=== PATIENT | female | born 1985 ===

== ENCOUNTER 2023-02-24 05:31 | Inpatient (IN) ==
--- NOTE | 2023-02-18 13:42 | Anesthesiology Consultation ---
Date of Service February 18, 2023 Assessment & Plan (1) Encounter for pre-operative examination: Infectious disease screening: Per assessment on 02/18/23: Patient tested positive for RSV approximately 02/06/23. Symptoms at time of cough and congestion/runny nose. Patient was given abx (ceftin) for sinus infection. Symptoms are resolving. She indicates Covid testing done 02/17 ([facility]) was negative per patient. date 2+ weeks after symptom onset and symptoms resolving. Ob aware/recommend keeping as scheduled at this time. Chart Review Chart Review: data entry initiated History Surgery Operation Date: 02/24/23 09:00 Proposed Procedures p Section (Delivery of Baby Through Abdominal Incision) - Jonelle Madsen MD, FACOG Height/Weight Height: 5 ft 7 in Weight: 89.358 kg Allergies Allergy/AdvReac Type Severity Reaction Status Date / Time Penicillins Allergy Unknown Verified 02/18/23 13:12 Medications Home Medications Medication Instructions Recorded Confirmed Last Taken prenat.vits,tejinder,[id number] 1 tab PO DAILY 07/15/22 02/18/23 Unknown Past Medical History Medical History Elderly multigravida, currently Past Family History Family History Aunt Breast cancer Family/Other Heart disease Denies family history of Ovarian cancer Colorectal cancer Past Surgical History Surgical History Nausea after anesthesia with in 2021 Hx of breast augmentation H/O LEEP S/P wisdom tooth extraction S/P Social History Smoking Status: Former smoker Do You Dip or Chew Tobacco: No Smoking End Date: 10 years ago Hx Alcohol Use: Yes alcohol intake frequency: other Alcohol Intake Frequency Comment: not for a few years Hx Substance Use: No substance use type: does not use Lab Results Anesthesia Preop Results Results Anesthesia Widget: Hgb 11.5 g/dl (12.0-16.0) L 12/30/22 Hct 34.5 % (37.0-47.0) L 12/30/22
--- NOTE | 2023-02-22 20:53 | History & Physical Report ---
Date of Service February 22, 2023 Assessment & Plan (1) Elderly multigravida, currently : Plan: IUP at 39 weeks for repeat LTCS AMA status keloid scar formation (2) Previous delivery affecting : Plan: proceed with repeat LTCS because of short interval will revise prior scar at time of repeat C/S but she is aware that she may need additional revisions in the future. thr procedure and it's risks were reviewed with the patient and her and all questions answered to their satisfaction. History of Present Illness Primary Care Provider: NO PCP Patient is a 37 yo female EDC 03/01/23 who presents at 39 weeks for repeat C/S. complicated by AMA status. testing has been reassuring. GBS-negative. Allergies Allergy/AdvReac Type Severity Reaction Status Date / Time Penicillins Allergy Unknown Verified 02/21/23 13:10 Home Medications Medication Instructions Recorded Confirmed Type prenat.vits,tejinder,[id number] 1 tab PO DAILY 07/15/22 02/21/23 History Patient History Medical History (Updated 02/22/23 @ 20:57 by Jonelle Madsen MD, FACOG) Elderly multigravida, currently Surgical History (Updated 02/22/23 @ 20:57 by Jonelle Madsen MD, FACOG) Nausea after anesthesia with in 2021 Hx of breast augmentation H/O LEEP S/P wisdom tooth extraction S/P Family History Aunt Breast cancer Family/Other Heart disease Denies family history of Ovarian cancer Colorectal cancer Social History (Updated 07/15/22 @ 09:56 by Steffi Mcfadden, JANET) Smoking Status: Former smoker Second Hand Exposure: No; Do You Dip or Chew Tobacco: No; Hx Alcohol Use: Yes Hx Substance Use: No Preferred Language: Citizen Of [place] Communication Ability: Effective Manager Product Support Required: No Beliefs That Will Affect Care: None marital status: marital status details: [place] [phone] Current Living Situation: Spouse and Family Current Living Situation Comment: , son, dog current occupational status: employed current occupation: [place] 1 week/ month Feels Safe at Home: Yes OB History Prior C/S done for LGA that weighed 10 lbs 6 ozs. that delivery was 17 months ago. 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 Review of Systems All systems reviewed & are unremarkable except as noted in HPI & below Physical Exam Constitutional: WD/WN, vitals as above Respiratory: normal respiratory effort, lungs clear to auscultation Cardiovascular: RRR, no murmur, no edema Gastrointestinal (Abdomen): Inspection/Auscultation: + abdominal surgical scar (keloid formation of low transverse incision) Psychiatric: A+Ox3, euthymic affect Genitourinary: OB Exam Abdomen: + fundal height (term), + vertex and + estimated weight (9 pounds) OB Exam Monitor Tracing: + external FHT monitor used, + external uterine monitor used, + category I and + normal FHT variability Coding Level of Care Code None Diagnoses Elderly multigravida, currently O09.529 Previous delivery affecting O34.219
[2023-02-24] MEDS ORDERED: SODIUM CHLORIDE 0.9% 250 ML IV PRN (05:38)
[2023-02-24] MEDS ORDERED: LACTATED RINGER'S 1,000 ML IV SCH ×2 (06:00→09:10)
[2023-02-24] MEDS ORDERED: CITRIC ACID/SODIUM CITRATE 15 ML UDC PO SCH (06:00)
[2023-02-24] MEDS ORDERED: ceFAZolin 2000MG 2,000 MG/15 ML SYR IV ONE (06:30)
[2023-02-24 06:34] LABS: Basophils # (auto) 0.01 K/uL (0.00-0.20); Basophils % (auto) 0.1 %; Eosinophils % (auto) 1.5 %; Hematocrit (blood only) 35.3 % (37.0-47.0); Hemoglobin 11.2 g/dl (12.0-16.0); Immature Granulocytes # (auto) 0.03 K/uL (0.01-0.20); Immature Granulocytes % (auto) 0.4 %; Lymphocytes # (auto) 2.37 K/uL (1.20-3.40); Lymphocytes % (auto) 34.6 %; Mean Corpuscular Hgb Conc 31.7 g/dL (32.0-36.0); Mean Corpuscular Volume 82.1 fL (80.0-100.0); Mean Platelet Volume 10.9 fL (9.4-12.4); Monocytes # (auto) 0.66 K/uL (0.11-0.59); Monocytes % (auto) 9.6 %; Neutrophils # (auto) 3.68 K/uL (1.40-6.50); Neutrophils % (auto) 53.8 %; Platelet Count 282 K/uL (130-400); RDW Standard Deviation 43.8 fL (36.4-46.3); White Blood Count 6.85 K/ul (4.8-10.8)
[2023-02-24] MEDS ORDERED: fentaNYL citrate PF 100 MCG/2 ML VIAL ONE (06:50)
[2023-02-24] MEDS ORDERED: MoRPHine SULFATE PF 1 MG/ML 10 ML AMP/VIAL ONE (06:51)
[2023-02-24] MEDS ORDERED: OXYTOCIN 10 UNITS/ML VIAL ONE (06:58)
[2023-02-24] MEDS ORDERED: LIDOCAINE 1%/EPINEPHRINE 1:100,000 50 ML VIAL INFIL ONE (07:15)
[2023-02-24] MEDS ORDERED: TRIAMCINOLONE ACET 40 MG/ML VIAL IM ONE (07:15)
--- NOTE | 2023-02-24 07:23 | History & Physical Bridge Note ---
Date of Service February 24, 2023 History & Physical Bridge Note I have examined the patient, reviewed the History & Physical and in the interval since the performance of the History & Physical I have noted the following changes of clinical significance: no changes noted
[2023-02-24] MEDS ORDERED: LIDOCAINE 1%/EPINEPHRINE 1:100,000 20 ML VIAL ONE (07:51)
[2023-02-24] MEDS ORDERED: ONDANSETRON INJ 2 MG/ML 2 ML VIAL ONE (07:57)
[2023-02-24] MEDS ORDERED: MoRPHine SULFATE PF 1 MG/ML 10 ML AMP/VIAL INT SPINAL ONE (07:58)
[2023-02-24] MEDS ORDERED: NALBUPHINE HCL 5 MG in SYRINGE 0 ML IV PRN (07:58)
[2023-02-24] MEDS ORDERED: ONDANSETRON INJ 2 MG/ML 2 ML VIAL IV PRN (07:58)
[2023-02-24] MEDS ORDERED: LACTATED RINGER'S 500 ML IV PRN (07:58)
[2023-02-24] MEDS ORDERED: NALOXONE HCL 0.08 MG in SYRINGE 1.8 ML IV PRN (07:58)
[2023-02-24] MEDS ORDERED: NALOXONE HCL 0.4 MG/1 ML VIAL/CARP IV PRN (07:58)
[2023-02-24] MEDS ORDERED: MEPERIDINE HCL 25 MG/ML CARP/VIAL IV PRN (07:58)
[2023-02-24] MEDS ORDERED: diphenhydrAMINE 50 MG/ML VIAL IV PRN (07:58)
[2023-02-24] MEDS ORDERED: ePHEDrine sulfate 50 MG/ML AMP IV PRN (07:58)
[2023-02-24] MEDS ORDERED: NALOXONE HCL 1 MG in SODIUM CHLORIDE 0.9% 1,000 ML IV PRN (07:58)
[2023-02-24] MEDS ORDERED: SODIUM CHLORIDE 0.9% 1,000 ML IV SCH (08:00)
[2023-02-24] MEDS ORDERED: NO NARCOTICS OR SEDATIVES SCH (08:00)
[2023-02-24] MEDS ORDERED: DC INTRASPINAL MORPHINE SCH (08:00)
[2023-02-24] MEDS ORDERED: PHENYLEPHRINE 100MCG/ML 10ML SYR IV ONE (08:06)
[2023-02-24] MEDS ORDERED: ePHEDrine sulfate 50 MG/5 ML SYR ONE (08:06)
--- NOTE | 2023-02-24 08:55 | Post Operative Brief Note ---
PG Immediate Post Op with CF Date of Surgery February 24, 2023 Pre & Post Diagnosis Operation Date: 02/24/23 07:30 Pre-Op Diagnosis: 1. Term IUP at 39 weeks 2. Previous c/section desires repeat c/section 3. Hx of LGA baby Post-Op Diagnosis: Same I identified the patient and participated in the time-out.: Yes Procedure Operation Date: 02/24/23 07:30 Actual Procedures p Section (Delivery of Baby Through Abdominal Incision) with the of a live female child at 0813. - Jonelle Madsen MD, FACOG Surgeon Jonelle Madsen MD, FACOG Well Services Operator Chery Weathers DO Estimated Blood Loss 550 Findings Consistent with Post-Op Diagnosis keloid replacing prior low transverse incision bilateral ovaries and tubes are normal gravid uterus-thin lower uterine segment Specimens Specimen Description: A: Placeta-Hold B: Cord Blood Drains Carter Catheter (Carter placed after spinal anesthesia placed; clear yellow urine noted upon insertion.) Anesthesia Type Spinal Complications none Disposition Accompanied Patient To Recovery: Yes Disposition: L&D
[2023-02-24] MEDS ORDERED: OXYTOCIN 20 UNITS/LR 1,002 ML IV SCH (09:10)
[2023-02-24] MEDS ORDERED: HYDROCORTISONE ACETATE 25 MG SUPP PR PRN (09:10)
[2023-02-24] MEDS ORDERED: MAGNESIUM HYDROXIDE SUSP 30 ML UDC PO PRN (09:10)
[2023-02-24] MEDS ORDERED: PROMETHAZINE HCL 25 MG in SODIUM CHLORIDE 0.9% 50 ML IV PRN (09:10)
[2023-02-24] MEDS ORDERED: SENNA 8.6 MG TAB PO PRN (09:10)
[2023-02-24] MEDS ORDERED: BENZOCAINE 20% SPRY 85 APPLN/85 GM CAN EXT PRN (09:10)
[2023-02-24] MEDS ORDERED: DIPHTHERIA/TETANUS/PERTUSSIS Vaccine (Tdap, Age 7+yrs) 0.5mL SYR/VL IM ONE (09:10)
--- NOTE | 2023-02-24 09:49 | Operative Report ---
PG Post Operative Report Pre & Post Diagnosis Operation Date: 02/24/23 07:30 Pre-Op Diagnosis: 1. Term IUP at 39 weeks 2. Previous c/section desires repeat c/section 3. Hx of LGA baby Post-Op Diagnosis: Same I identified the patient and participated in the time-out.: Yes Procedure Operation Date: 02/24/23 07:30 Actual Procedures p Section (Delivery of Baby Through Abdominal Incision) with the of a live female child at 0813. - Jonelle Madsen MD, FACOG Surgeon Jonelle Madsen MD, FACOG Director Trial Chery Weatehrs DO Estimated Blood Loss 550 Findings Consistent with Post-Op Diagnosis Gravid uterus consistent with a term in size Bilateral ovaries and fallopian tubes were grossly normal Lower uterine segment was noted to be thin but intact. Specimens placenta to hold cord blood Drains Carter to straight drainage- clear urine at end of the case Anesthesia Type Spinal Complications none Disposition Accompanied Patient To Recovery: Yes Disposition: L&D Indications Patient is a 37-year-old 2 para 1-0-0-1 female who presents at 39 weeks for repeat section. For section was done because of macrosomic . She delivered approximately 17 months ago and therefore she is not a candidate for a trial of labor. Description of Procedure After the patient received adequate subarachnoid block she was prepped and draped in usual sterile fashion. Her prior keloid scar was removed with a scalpel. The keloid was grasped with Allis clamps and divided from the underlying adipose tissue. The fascia was then entered with a scalpel and extended in a transverse fashion. The fascial edge was grasped with Jennifer clamps and the underlying rectus muscles were bluntly sharply dissected off of the overlying fascia. The rectus muscle were then bluntly divided along the midline and the underlying peritoneum elevated and entered sharply with the scalpel. The bladder was then taken down off the anterior surface of the uterus and placed behind the bladder blade. Lower uterine segment is entered with a scalpel and then extended both cephalad and caudad direction. Membranes were ruptured for thin meconium stained fluid. The was delivered from the vertex presentation with moderate fundal pressure. Shoulder cord was reduced upon delivery of the head. Rest the delivered easily and was vigorous crying and moving all 4 limbs. Cord was clamped and cut, and the female was handed off to Dr. Solis who was in attendance as rod greaser. Placenta was expressed intact with a three-vessel cord. Some retained membranes were removed with ring forceps. The uterine cavity was explored several times to ensure that there was no retained tissue or membranes. The uterus was then closed in 2 layers in a running locking imbricating fashion with 0 Monocryl. A single bleeding site above the incision was secured with the Bovie. The incision was examined once more continue to have excellent hemostasis. Uterus was placed back inside the abdominal cavity. The posterior cul-de-sac was suctioned for a very small amount of fluid. The uterine incision was examined once more and continue to have excellent hemostasis. The rectus muscle were brought together on the midline with individual stitches of 0 Monocryl. The fascia was reapproximated in a running fashion with 0 Vicryl. There was some remaining thickened subcutaneous tissue present anterior to the fascial incision which was resected. Skin edges were then brought together in a subcuticular fashion with 4-0 Vicryl. Mother and were doing well after delivery clear urine was noted at the end of the case. I attest to the content of the Intraoperative Record and any orders documented therein. Any exceptions are noted below. OB Procedure Charges 91467 (keloid scar also removed)
[2023-02-24] MEDS: KETOROLAC 30 MG/ML VIAL IV PRN ×2 (11:06→19:36)
[2023-02-24] MEDS: SIMETHICONE 80 MG CHEW PO SCH ×3 (12:35→21:21)
--- NOTE | 2023-02-24 12:36 | Anesthesiology Progress Note ---
Date of Service February 24, 2023 Anesthesia Post Procedure Vital Signs Vital Signs: Temp Pulse Resp BP Pulse Ox 02/24/23 11:10 61 99/54 L 02/24/23 11:09 65 99 02/24/23 11:04 70 98 02/24/23 11:00 98.6 F 20 02/24/23 11:00 57 L 98/54 L 02/24/23 10:59 52 L 99 02/24/23 10:54 53 L 98 02/24/23 10:50 64 105/55 L 02/24/23 10:49 66 99 02/24/23 10:44 66 100 02/24/23 10:41 70 103/51 L 02/24/23 10:39 62 100 02/24/23 10:34 68 100 02/24/23 10:30 20 02/24/23 10:30 68 102/56 L 02/24/23 10:29 67 99 02/24/23 10:24 64 100 02/24/23 10:20 63 100/67 02/24/23 10:19 61 100 02/24/23 10:14 67 100 02/24/23 10:10 73 101/68 02/24/23 10:09 77 100 02/24/23 10:04 76 100 02/24/23 10:00 98.1 F 20 02/24/23 10:00 60 97/61 L 02/24/23 09:59 63 100 02/24/23 09:54 71 99 02/24/23 09:50 20 02/24/23 09:50 70 97/62 L 02/24/23 09:49 67 100 02/24/23 09:44 66 100 02/24/23 09:40 20 02/24/23 09:40 63 94/57 L 02/24/23 09:39 67 99 02/24/23 09:34 67 100 02/24/23 09:30 20 02/24/23 09:30 69 100/56 L 02/24/23 09:29 68 100 02/24/23 09:24 75 100 02/24/23 09:21 71 95/52 L 02/24/23 09:20 20 02/24/23 09:19 70 100 02/24/23 09:14 74 99 02/24/23 09:11 76 02/24/23 09:11 87/51 L 02/24/23 09:11 83 84/51 L 02/24/23 09:10 20 02/24/23 09:09 77 100 02/24/23 09:04 71 100 02/24/23 08:59 97.5 F L 20 02/24/23 08:59 71 91/53 L 100 02/24/23 05:50 97.5 F L 67 18 114/65 02/24/23 05:46 97.5 F L 67 18 114/65 Pain Intensity Lower Abdomen: Pain Intensity: 5 Transfer of Care Handoff Completed per policy Notes Mental Status: alert / awake / arousable and participated in evaluation Nausea / Vomiting: adequately controlled Pain: adequately controlled Airway Patency, RR, SpO2: stable & adequate BP & HR: stable & adequate Hydration State: stable & adequate Neuraxial Anesthesia: was administered and sensory block is resolving Anesthetic Complications: no major complications apparent and Pt Satisfied with anesthetic care
[2023-02-24] MEDS ORDERED: LACTATED RINGER'S 500 ML IV ONE (18:28)
[2023-02-24] MEDS: DOCUSATE SODIUM 100 MG CAP PO SCH (21:21)
[2023-02-25] MEDS ORDERED: ONDANSETRON INJ 2 MG/ML 2 ML VIAL IV PRN (01:59)
[2023-02-25] MEDS ORDERED: diphenhydrAMINE Capsule 25 MG CAP PO PRN (01:59)
[2023-02-25] MEDS ORDERED: oxyCODONE/ACETAMINOPHEN 5mg/325mg TAB PO PRN (01:59)
[2023-02-25] MEDS: IBUPROFEN 600 MG TAB PO PRN ×5 (02:30→19:46)
[2023-02-25 06:25] LABS: Basophils # (auto) 0.02 K/uL (0.00-0.20); Basophils % (auto) 0.2 %; Eosinophils # (auto) 0.08 K/uL (0.00-0.50); Hematocrit (blood only) 27.4 % (37.0-47.0); Hemoglobin 8.7 g/dl (12.0-16.0); Immature Granulocytes # (auto) 0.03 K/uL (0.01-0.20); Immature Granulocytes % (auto) 0.4 %; Lymphocytes # (auto) 1.73 K/uL (1.20-3.40); Lymphocytes % (auto) 21.6 %; Mean Corpuscular Hgb Conc 31.8 g/dL (32.0-36.0); Mean Corpuscular Volume 81.8 fL (80.0-100.0); Monocytes # (auto) 0.84 K/uL (0.11-0.59); Monocytes % (auto) 10.5 %; Neutrophils # (auto) 5.32 K/uL (1.40-6.50); Neutrophils % (auto) 66.3 %; Platelet Count 246 K/uL (130-400); RDW Coefficient of Variation 15.1 % (11.5-14.5); RDW Standard Deviation 44.5 fL (36.4-46.3); Red Blood Count 3.35 M/uL (4.20-5.40); White Blood Count 8.02 K/ul (4.8-10.8)
--- NOTE | 2023-02-25 06:27 | Obstetrical Progress Note ---
Date of Service February 25, 2023 Assessment & Plan (1) Encounter for care after hospital delivery: Plan -Vital signs reviewed and WNL -HGB 8.7 -Blood type O+ -Rubella immune -Pt doing well clinically -Encourage ambulation -Monitor and control pain with Motrin prn -Monitor lochia -Encourage Admission and Anticipated Discharge Date Admission Date: February 24, 2023 Supervising Physician Co-Signing Physician Notes Resident Physician Supervision Note: I interviewed and examined the patient. Discussed with Dr. Shreyas Crowley and agree with findings and plan as documented in the note. Any exceptions or clarifications are listed here: [None] Documented By: Jonelle Madsen MD, FACOG Subjective 37 yo post- day 1 s/p section Ambulation: ambulating normally Voiding: No voiding problems Passing Gas:: Yes Diet Tolerance:: regular diet Lochia:: Small Feeding Type:: breast feeding Current Pain Level: controlled Resting comfortably this AM in NAD. Denies DOOLEY, CP, SOB, N/V/D, LE pain/swelling. Review of Systems Review of Systems: All systems reviewed & are unremarkable except as noted in HPI & below Physical Exam Physical Exam: General: patient resting comfortably, NAD, non-toxic in appearance, AA&O x 4, answers questions appropriately. Skin: warm, dry, intact HEENT: NC/AT, anicteric sclera, conjunctiva without injection, moist mucus membranes. Heart: +S1/S2, regular, no m/r/g Lungs: equal air entry bilaterally, no rales/rhonchi/wheezes Abd: +BS, soft, NT/ND, uterine fundus firm at umbilicus, wound clean, no bleeding. Ext: warm, no clubbing/cyanosis or edema, Tasneem's neg. Neuro: nonfocal, patient AA&O x 4, speech intact, no facial droop, moving all extremities on command. Results & Data Vital Signs (Past 12 Hours) Vital Signs Temp Pulse Resp BP Pulse Ox O2 Del Method 02/25/23 03:00 36.5 C 66 18 91/54 L 98 Room Air 02/25/23 01:00 18 96 02/25/23 00:00 18 94 02/24/23 23:17 36.5 C 72 18 93/56 L 98 Room Air 02/24/23 23:00 18 98 02/24/23 22:20 20 96 02/24/23 21:20 20 97 02/24/23 20:20 20 100 02/24/23 19:20 20 100 02/24/23 19:20 36.4 C L 57 L 20 86/54 L 100 Room Air 02/24/23 18:37 20 99 Resident Activity Tracking Resident Involvement: Resident Care Provided Care Provided: OB Delivery
[2023-02-25] MEDS: FERROUS SULFATE 325 MG TAB PO SCH (08:42)
[2023-02-25] MEDS: SIMETHICONE 80 MG CHEW PO SCH ×3 (08:42→19:45)
[2023-02-25] MEDS: DOCUSATE SODIUM 100 MG CAP PO SCH ×2 (08:43→19:45)
[2023-02-25] MEDS: PRENATAL VITAMIN 1 TAB PO SCH (08:43)
[2023-02-25] MEDS ORDERED: bisacodyL 5 MG TABEC PO SCH (20:00)
[2023-02-26] MEDS: IBUPROFEN 600 MG TAB PO PRN ×3 (00:05→09:39)
--- NOTE | 2023-02-26 05:51 | Obstetrical Progress Note ---
Date of Service February 26, 2023 Assessment & Plan (1) Encounter for care after hospital delivery: Plan -Vital signs reviewed and WNL -HGB 8.7 -Blood type O+ -Rubella immune -Pt doing well clinically -Encourage ambulation -Monitor and control pain with Motrin prn -Monitor lochia -Encourage Admission and Anticipated Discharge Date Admission Date: February 24, 2023 Supervising Physician Co-Signing Physician Notes Resident Physician Supervision Note: I interviewed and examined the patient. Discussed with Dr. Crowley and agree with findings and plan as documented in the note. Any exceptions or clarifications are listed here: Overnight had lots of crampy pain, thought to be bowel. Was given suppository. Was successful of a large amount of stool but was on toilet for over an hour pushing. She notes she is a little better this am but quite sore. Otherwise meeting milestones. Will continue to monitor today. Documented By: Dulce Vora MD, FACOG Subjective 37 yo post- day 2 s/p section Ambulation: ambulating normally Voiding: No voiding problems Passing Gas:: Yes Diet Tolerance:: regular diet Lochia:: Small Feeding Type:: breast feeding Current Pain Level: controlled Resting comfortably this AM in NAD. Denies DOOLEY, CP, SOB, N/V/D, LE pain/swelling. Review of Systems Review of Systems: All systems reviewed & are unremarkable except as noted in HPI & below Physical Exam Physical Exam: General: patient resting comfortably, NAD, non-toxic in appearance, AA&O x 4, answers questions appropriately. Skin: warm, dry, intact HEENT: NC/AT, anicteric sclera, conjunctiva without injection, moist mucus membranes. Heart: +S1/S2, regular, no m/r/g Lungs: equal air entry bilaterally, no rales/rhonchi/wheezes Abd: +BS, soft, NT/ND, uterine fundus firm at umbilicus, wound clean, no bleeding. Ext: warm, no clubbing/cyanosis or edema, Tasneem's neg. Neuro: nonfocal, patient AA&O x 4, speech intact, no facial droop, moving all extremities on command. Results & Data Vital Signs (Past 12 Hours) Vital Signs Temp Pulse Resp BP Pulse Ox O2 Del Method 02/26/23 00:40 36.5 C 72 18 102/63 02/25/23 20:40 36.6 C 69 18 97/62 L 97 Room Air Resident Activity Tracking Resident Involvement: Resident Care Provided Care Provided: OB Delivery
[2023-02-26] MEDS ORDERED: bisacodyL 10 MG SUPP PR PRN ×2 (08:34)
[2023-02-26] MEDS: DOCUSATE SODIUM 100 MG CAP PO SCH (09:38)
[2023-02-26] MEDS: FERROUS SULFATE 325 MG TAB PO SCH (09:38)
[2023-02-26] MEDS: PRENATAL VITAMIN 1 TAB PO SCH (09:39)
[2023-02-26] MEDS: SIMETHICONE 80 MG CHEW PO SCH ×2 (09:39→12:16)
--- NOTE | 2023-02-28 15:10 | Discharge Summary ---
Date of Service February 28, 2023 Admission HPI Per Admitting Provider Patient is a 37 yo female [facility] [birth year] who presents at 39 weeks for repeat C/S. complicated by AMA status. testing has been reassuring. GBS-negative. Admission Exam (Per Admitting) Constitutional WD/WN, vitals as above Respiratory normal respiratory effort, lungs clear to auscultation Cardiovascular RRR, no murmur, no edema Gastrointestinal (Abdomen) Inspection/Auscultation: + abdominal surgical scar (keloid formation of low transverse incision) Psychiatric A+Ox3, euthymic affect Genitourinary OB Exam Abdomen: + fundal height (term), + vertex and + estimated weight (9 pounds) OB Exam Monitor Tracing: + external FHT monitor used, + external uterine monitor used, + category I and + normal FHT variability Discharge Data Consultations 02/24/23 05:36 Consult Anesthesiology Stat Procedures Performed Operation Date: 02/24/23 07:30 Actual Procedures p Section (Delivery of Baby Through Abdominal Incision) with the of a live female child at 0813. - Jonelle Madsen MD, FACOG Discharge Plan Discharge Items Patient Disposition: Home - Self-Care Reason For Visit: History of Section Discharge Diagnosis: post Activity: Resume your previous activity Non-emergency contact: Primary Care Provider and Therapeutic Assistant Call non-emergency contact if: you have any medication questions, your pain is unusual for you, your temperature is above 101 and your wound has increased drainage Follow-up/Referrals: PCP,NO [Primary Care Provider] - Diet: Regular Addtl Attending Provider Instructions: ACTIVITY RECOMMENDATIONS: * Gradual return to full activity over the next 2-3 weeks. * No lifting - nothing heavier than baby over the next 2-3 weeks. * Do not engage in vigorous exercise, sexual activity or sports until cleared by your physician. * Do not drive or operate any motorized equipment until cleared by your physician. * You may shower/bathe daily. MEDICATIONS: For discomfort or pain, you may use Acetaminophen (Tylenol), Ibuprofen (Advil), or Naproxen (Aleve) following the package directions. For constipation you may use Colace following the package directions. BREAST CARE: If you are not breast feeding: * Wear a supportive bra 24 hours a day for one to two weeks. * Avoid stimulating your breasts and nipples as much as possible during the first few weeks after delivery. * When taking a shower, have the warm water hit your back, not breasts. * When your breasts feel full, apply ice packs. Usually three to four times a day helps ease the discomfort. * Take a mild pain medication (Tylenol / Motrin) when you are uncomfortable. If breast feeding: * Use breast milk to lubricate nipples. Lansinoh cream may be used for sore nipples. You do not need to remove cream prior to breast feeding. If using a different brand of cream, check the label for directions regarding removal of cream prior to nursing. * Wear a supportive bra. * If having problems with breasts or breast feeding, call a wardrobe consultant or your health care provider. SPECIAL CARE INSTRUCTIONS: When you are discharged from the hospital, it is important for you to follow the instructions listed below: * During the first week at home, you should be able to care for yourself and your baby. In addition, the usual light household activities are encouraged. * Limit your activities to the way you feel. Do not try to clean the house or move furniture. Be sensible. * If you actively engage in sports and have done so up until the time of your delivery, you may resume these activities as soon as you feel able. This may take up to one month or even longer. Use good judgment. * Continue to take your vitamins for at least six weeks after the of your baby. * Your diet need not be limited unless you were on a special diet before your delivery. Breast-feeding mothers need around 2500 calories per day and at least 64-80 ounces of fluid per day (8 to 10 glasses). * You should eat foods from the four major food groups. Crash diets or fad diets are to be avoided. Eating lean meats, fresh fruits and vegetables, low-fat dairy products, high fiber foods and a regular exercise program, will help you get back to your pre- weight without putting your health at risk. * Constipation is sometimes a problem after delivery. Take a mild laxative as needed. If breast feeding, Milk of Magnesia is acceptable to use. You may use a suppository or Fleets enema. * A daily shower or tub bath is suggested. Wash incision daily with warm soapy water and pat dry. It doesn't need to be covered unless drainage is present. * A bloody vaginal discharge will usually continue until around four weeks . A small amount of bleeding may continue for as long as six weeks. Vaginal discharge changes from the bright red bleeding after delivery to pink then brownish and finally yellowish-pink before becoming white and disappearing. * Bleeding may increase with activity. Your first period may come in 4-8 weeks. If you are breast feeding, your period may be delayed even longer. * [place] (sex) can begin whenever both you and your partner feel comfortable and do not have any form of genital infection. It is recommended that you wait at least six weeks for internal and external healing to occur. If you have questions, please talk to your health care practitioner. A condom should be used to prevent infection and . * Foreplay, gentle intercourse and lubrication is very important the first several times to prevent pain. A water-based lubricant such as K-Y jelly or Astroglide may be used. * If you have RH negative blood and your baby is RH positive, you will receive RHOGAM by injection prior to discharge. The nurse will give you a card to keep with you that has the date and place that you received RHOGAM after delivery. * During your care, you had a Rubella screen done to check for the presence of rubella antibodies in your blood. If your test was negative, you will receive a Rubella vaccine prior to discharge. This vaccine may cause a fever, soreness at the injection site and flu-like symptoms. If these symptoms persist, notify your health care practitioner. is not advised for one month after a Rubella vaccine. * Verbalizes understanding of car seat law as reviewed with patient nursing. * Car Seat hand-out given and reviewed with patient by nursing. * Shaken baby information reviewed with patient by nursing. Call you doctor if: * Heavy bleeding (saturating several pads an hour) or passing clots the size of your fist. * A fever >101 degrees F (38.3 degrees C) on two occasions four hours apart and/or chills. * Unusual pain in the pelvic or vaginal areas. * Call the doctor for any increased redness, drainage or swelling around the incision and any pain unrelieved by prescribed pain medication. * "Baby Blues" lasting longer than two weeks. If you have any questions or concerns, call your health care practitioner at . FOLLOW UP VISIT: * Please call the office at to schedule a 6 week examination. It is important you keep this appointment. It is important for you to make arrangements for either yearly or twice yearly check-ups thereafter. Pending Studies at Discharge: No Stand-Alone Forms: [facility], Smoking Cessation Medications and DC Order Prescriptions: New oxycodone-acetaminophen [Percocet] 5-325 mg Tablet 1 - 2 tab PO Q4H PRN (Reason: pain) Qty: 14 0RF Continued prenat.vits,tejinder,[id number] Tablet 1 tab PO DAILY Discharge Orders: Discharge Order (Routine); Ordered 02/26/23 Ordered By: Darci Chapa/Other Patient Handouts: Understanding Blues, DVT in , Understanding Depression Admission Data Admit Date/Time: 02/24/23 05:31 Attending Provider: Jonelle Madsen Admit Provider: Jonelle Madsen Primary Care Provider: PCP,NO Other Providers: Sean Mitchell Other Interventions: Discharge Summary Assessment (RN) Last Done: 02/26/23 11:09 Coding Level of Care Code None
== END 2023-02-26 13:55 | disposition home or self-care (01) | DRG 788 ==
LOC: 4S1 05:31 → EDSTATUS 09:00 → 4E2 12:10